=== PATIENT | female | born 2000 | race Caucasian/White ===

== ENCOUNTER 2024-05-23 08:05 | Outpatient (REF) | payer OTHER, SELFPAY ==
--- OUTSIDE RECORDS SUMMARY | 2024-05-23 08:14 | XMS_ITS | Encounter Summary ---
Author Organization Paula Bhatt [facility] Address [address] [place] [address] Care Team Providers Care Instructor Dramatic Arts Name Role Phone Felipa Humphries MD Primary Care Provider [phone] Hannah Byrd NP Unavailable Karine Miller NP Unavailable [phone] Tessy Cross MD Primary Care Provider + [phone] Encounter Details Date Type Department Care Team (Late st Contact Info) Description 10/28/2020 Lab Requisition [facility] [address] [place] [address] [phone] Tenzin Lo NP [address] [facility] [address] [place] [address] Encounter for general adult medical examination without abnormal findings; Dysmenorrhea, unspecified Social History Tobacco Use Types Packs/Day Years Used Date Smoking Tobacco: Never Smokeless Tobacco: Never Alcohol Use Standard Drinks/Week Comments Never 0 (1 standard drink = 0.6 oz pur e alcohol) Comments Unknown Sex and Gender Information Value Date Recorded Sex Assigned at Female 03/02/2020 8:22 AM EST Legal Sex Female 9:45 PM EDT Gender Identity Female 03/02/2020 8:22 AM EST Sexual Orientation Not on file documented as of this encounter Plan of Treatment Upcoming Encounters Date Type Department Care Team (Late st Contact Info) Description 06/30/2024 1:20 PM EDT Office Visit [facility] [address] [place] [address] Regina Hsu MD 480 [facility] [address] [place] [address] 04/17/2025 9:00 AM EST [facility] [address] [facility] [address] [place] [address] Tessy Cross MD [address] [facility] [address] [place] [address] documented as of this encounter Procedures Procedure Name Priority Date/Time Associated Diagnosis Comments AMPLIFIED PROBE, CHLAMYDIA AND GC Routine 10/28/2020 11:01 AM EDT Encounter for general adult medical examination without abnormal findings Dysmenorrhea, unspecified documented in this encounter Results * Chlamydia and GC AmplifiedProbe (10/28/2020 11:01 AM EDT) C. trachomatis by Amplified Probe Negative Negative PANTHER NON-FUSION 10/29/2020 12:47 PM EDT [facility] N. gonorrhoeae by Amplified Probe Negative Negative PANTHER NON-FUSION 10/29/2020 12:47 PM EDT [facility] xOther FIRST STREAM URINE SPECIMEN / Unknown 10/28/2020 11:01 AM EDT 10/28/2020 11:01 AM EDT Narrative [facility] - 10/29/2020 12:47 PM EDT This test was developed and its performance characteristics determined internally by our laboratory for female urine samples. It has not been cleared or approved by the U.S. Food and Drug Administration. FDA does not require this test to go through premarket FDA review. This test is used for clinical purposes. It should not be regarded as investigational or for research. This laboratory is certified under Clinical Laboratory Improvement Amendments (CLIA) as qualified to perform high complexity clinical laboratory testing Tenzin Lo NP MICROBIOLOGY - GENERAL ORDERABL ES Final Result [facility] [address] [place] [address] documented in this encounter Visit Diagnoses Diagnosis Encounter for general adult medical examination without abnormal findings Dysmenorrhea, unspecified documented in this encounter Care Teams Instructor Dramatic Arts Relationship Specialty Start Date End Date Felipa Humphries MD [address] [facility] [address] [place] [address] PCP - General 10/11/12 01/25/22 Tessy Cross MD [address] [facility] [address] [place] [address] PCP - General Family Practice 01/26/22 Hannah Byrd NP [address] [place] [address] [address] [place] [address] Nurse Practitioner Nurse Practitioner 06/03/21 Karine Miller NP [address] [place] [address] Nurse Practitioner Nurse Practitioner 06/04/21 documented as of this encounter
--- OUTSIDE RECORDS SUMMARY | 2024-05-23 08:14 | XMS_ITS | Encounter Summary ---
Author Organization Paula Bhatt [facility] Address [address] [place] [address] Care Team Providers Care Police Liaison Officer Name Role Phone Hannah Byrd CAR CUSTOMIZER Unavailable Karine Miller CAR CUSTOMIZER Unavailable [phone] Tessy Cross MD Primary Care Provider [phone] Reason for Referral * Consult / Treatment (Routine) - Pending Review Specialty Diagnoses / Procedures Referred By Contpreston t Referred To Contact Diagnoses ASCUS (atypical squamous cells of undetermined significance) on gynecologic Papanicolaou smear complicating , antepartum Tessy Cross MD [address] [place] [address] Phone: tel: fax: Referral ID Status Reason Start Date Expiration Date V isits Requested Visits Authorized [id number] Pending Review 04/26/2024 07/20/2025 1 1 Reason for Visit * Reason Onset Date Comments Results 04/26/2024 Encounter Details Date Type Department Care Team ([facility] Contact Info) Description 04/26/[address] [place] [address] Tessy Cross MD [address] [place] [address] [address] [place] [address] Results Social History Tobacco Use Types Packs/Day Years Used Date Smoking Tobacco: Never Smokeless Tobacco: Never Alcohol Use Standard Drinks/Week Comments Yes 1 (1 standard drink = 0.6 oz pur e alcohol) x1 per month [facility] Utilities Answer Date Recorded In the past 12 months has th e electric, gas, oil, or water company threatened to shut off services in your home? No 04/03/2024 Humiliation, Afraid, Rape, and Kick questionnair e Answer Date Recorded Within the last year, have y ou been afraid of your partner or ex-partner? No 04/03/2024 Emotionally Abused Not on file 04/03/2024 Physically Abused Not on file 04/03/2024 Sexually Abused Not on file 04/03/2024 Overall Financial Resource Strain (CARDIA) Answe r Date Recorded How hard is it for you to pa y for the very basics like food, housing, medical care, and heating? Not hard at all 04/03/2024 Hunger Vital Sign Answer Date Recorded Within the past 12 months, y ou worried that your food would run out before you got the money to buy more. Never true 04/03/19 25 Ran Out of Food in the Last Year Not on file 04/03/2024 PRAPARE - Transportation Answer Date Re corded In the past 12 months, has l ack of transportation kept you from medical appointments or from getting medications? No 03/22 In the past 12 months, has l ack of transportation kept you from meetings, work, or from getting things needed for daily living? No 04/03/2024 Housing Stability Vital Sign Answer Kulwant e Recorded In the last 12 months, was t here a time when you were not able to pay the mortgage or rent on time? No 04/08/2023 Number of Places Lived in the Last Year Not on f ile 04/08/2023 In the last 12 months, was t here a time when you did not have a steady place to sleep or slept in a usp (including now)? No 04/08/2023 Food Insecurity Answer Date Recorded Within the past 12 months, y ou worried that your food would run out before you got the money to buy more. Never true 04/03/19 25 Ran Out of Food in the Last Year Not on file 04/03/2024 Intimate Partner Violence Answer Date R ecorded Emotionally Abused Not on file 04/03/2024 Within the last year, have y ou been afraid of your partner or ex-partner? No 04/03/2024 Physically Abused Not on file 04/03/2024 Sexually Abused Not on file 04/03/2024 Housing Stability Answer Date Recorded In the last 12 months, was t here a time when you did not have a steady place to sleep or slept in a usp (including now)? No 04/03/2024 In the last 12 months, was t here a time when you were not able to pay the mortgage or rent on time? No 04/03/2024 [address] of Places Lived in the Last Year Not on f ile 04/03/2024 AUDIT C Answer Date Recorded How often have you had a dri nk containing alcohol, in the past year? 3 04/03/2024 How many standard drinks con taining alcohol have you had on a typical day when you are drinking, in the past year? 1 0 04/03/2024 How often have you had six o r more drinks on one occasion, in the past year? 2 04/03/2024 Comments No Sex and Gender Information Value Date Recorded Sex Assigned at Female 03/02/2020 8:22 AM EST Legal Sex Female 9:45 PM EDT Gender Identity Female 03/02/2020 8:22 AM EST Sexual Orientation Not on file Occupation Industry Job Start Date Job End Date student Not on file Not on file Not on file documented as of this encounter Miscellaneous Notes * Telephone Encounter - Tessy Cross MD - 04/26/2024 8:59 AM EST Spoke with patient. Will follow up with [facility]. * Telephone Encounter - Jane Amanda - 04/26/2024 8:51 AM EST Patient would like lab results documented in this encounter Plan of Treatment Upcoming Encounters Date Type Department Care Team (Late st Contact Info) Description 06/30/2024 1:20 PM EDT Office Visit [facility] [address] [place] [address] Regina Hsu MD 480 [facility] [address] [place] [address] 04/17/2025 9:00 AM EST Office Visit [facility] 480 [facility] [address] [place] [address] Tessy Cross MD 480 [facility] [address] [place] [address] Scheduled Referrals Name Type Priority Associated Diagnoses Orde r Schedule Ambulatory Referral to Obstetrics & Gynecology Outpatient Referral Routine ASCUS (atypical squamous cells of undetermined significance) on gynecologic Papanicolaou smear complicating , antepartum Expected: 04/26/2024 (Approximate), Expires: 04/26/2025 documented as of this encounter Visit Diagnoses Diagnosis ASCUS (atypical squamous cells of undetermined significance) on gynecologic Papanicolaou smear complicating , antepartum- Primary documented in this encounter Care Teams Police Liaison Officer Relationship Specialty Start Date End Date Tessy Cross MD 480 [facility] [address] [place] [address] PCP - General Family Practice 01/26/22 Hannah Byrd NP Nurse Practitioner Nurse Practitioner 06/03/21 Karine Miller NP [address] [place] [address] [address] [place] [address] Nurse Practitioner Nurse Practitioner 06/04/21 documented as of this encounter
--- OUTSIDE RECORDS SUMMARY | 2024-05-23 08:14 | XMS_ITS | Encounter Summary ---
Author Organization Paula Bhatt [facility] Address [address] [place] [address] Care Team Providers Care Machine Setup Operator Name Role Phone Felipa Humphries MD Primary Care Provider [phone] Hannah Byrd NP Unavailable Karine Miller [employer] Unavailable [phone] Tessy Cross MD Primary Care Provider + [phone] Encounter Details Date Type Department Care Team (Late st Contact Info) Description 04/15/2015 Lab Requisition [facility] [address] [place] [address] [phone] David Ramey, [facility] [address] [place] [address] Acute pharyngitis Social History Tobacco Use Types Packs/Day Years Used Date Smoking Tobacco: Never Assessed Comments Unknown Sex and Gender Information Value Date Recorded Sex Assigned at Female 03/02/2020 8:22 AM EST Legal Sex Female 9:45 PM EDT Gender Identity Female 03/02/2020 8:22 AM EST Sexual Orientation Not on file documented as of this encounter Plan of Treatment Upcoming Encounters Date Type Department Care Team (Late st Contact Info) Description 06/30/2024 1:20 PM EDT Office Visit [facility], [facility] [address] [place] [address] Regina Hsu MD [address] [address] 04/17/2025 9:00 AM EST Office Visit [facility] [address] [facility] [address] [place] [address] Tessy Cross MD 480 [facility] [address] [place] [address] documented as of this encounter Procedures Procedure Name Priority Date/Time Associated Diagnosis Comments BETA STREP SCREEN GROUP A Routine 04/15/2015 5:32 PM EST Acute pharyngitis documented in this encounter Results * Beta Strep Screen, Group A (04/15/2015 5:32 PM EST) Strep Group A Genprobe Negative Negative 04/16/2015 11:41 AM EST [facility] Specimen from throat (specimen) STRUCTURE OF ANTERIOR PORTION OF NECK / Unknown 04/15/2015 5:32 PM EST 04/15/2015 5:32 PM EST us David Ramey [employer] [facility] [facility] MICROBIOLOGY - GENERAL ORDERA BLES Final Result Performing Organization Address City/State/[facility] Co de Phone Number [facility] [address] [place] [address] documented in this encounter Visit Diagnoses Diagnosis Acute pharyngitis documented in this encounter Additional Health Concerns Infection Onset Date Last Indicated Resolved Time COVID Suspect 03/02/2020 03/02/2020 03/04/2020 7:0 1 PM EST documented as of this encounter Care Teams Machine Setup Operator Relationship Specialty Start Date End Date Felipa Humphries MD [address] [facility] [address] [place] [address] PCP - General 10/11/12 01/25/22 Tessy Cross MD [address] [place] [address] PCP - General Family Practice 01/26/22 Hannah Byrd NP [address] [place] [address] [address] [place] [address] Nurse Practitioner Nurse Practitioner 06/03/21 Karine Miller NP [address] [place] [address] Nurse Practitioner Nurse Practitioner 06/04/21 documented as of this encounter
--- OUTSIDE RECORDS SUMMARY | 2024-05-23 08:14 | XMS_ITS | Encounter Summary ---
Author Organization Paula Bhatt [facility] Address [address] [place] [address] Care Team Providers Care Wrist Closer Name Role Phone Felipa Humphries MD Primary Care Provider [phone] Hannah Byrd NP Unavailable Karine Miller NP Unavailable [phone] Tessy Cross MD Primary Care Provider + [phone] Encounter Details Date Type Department Care Team (Late st Contact Info) Description 11/20/2021 Lab Requisition [facility] [address] [place] [address] [phone] Art Odom Jr., [place] [address] Ashley Odom NP 480 [facility] [address] [place], [place] [id number] Dysmenorrhea, unspecified Social History Tobacco Use Types Packs/Day Years Used Date Smoking Tobacco: Never Smokeless Tobacco: Never Alcohol Use Standard Drinks/Week Comments Yes 1 (1 standard drink = 0.6 oz pur e alcohol) x1 per month Comments No Sex and Gender Information Value [...] Description 06/30/2024 1:20 PM EDT Office Visit [facility], [facility] [address] [place] [address] Regina Hsu MD [address] [place] [address] [address] [place] [address] 04/17/2025 9:00 AM EST Office Visit [facility] 480 [facility] [address] [place] [address] Tessy Cross MD 480 [facility] [address] [place] [address] documented as of this encounter Procedures Procedure Name Priority Date/Time Associated Diagnosis Comments AMPLIFIED PROBE, CHLAMYDIA AND GC Routine 11/20/2021 1:10 PM EDT Dysmenorrhea, unspecified documented in this encounter Results * Chlamydia and GC AmplifiedProbe (11/20/2021 1:10 PM EDT) C. trachomatis by Amplified Probe Negative Negative PANTHER NON-FUSION 11/26/2021 1:58 PM EDT [facility] N. gonorrhoeae by Amplified Probe Negative Negative PANTHER NON-FUSION 11/26/2021 1:58 PM EDT [facility] xOther FIRST STREAM URINE SPECIMEN / Unknown 11/20/2021 1:10 PM EDT 11/20/2021 1:10 PM EDT Narrative [facility] - 11/26/2021 1:58 PM EDT This test was developed and [...] to perform high complexity clinical laboratory testing us Ashley Odom NP MICROBIOLOGY - GENERAL ORDER CHARLEY Final Result [facility] [address] [place] [id number] documented in this encounter Visit Diagnoses Diagnosis Dysmenorrhea, unspecified documented in this encounter Care Teams Wrist Closer Relationship Specialty Start Date End Date Felipa Humphries MD 480 [facility] [address] [place] [address] PCP - General 10/11/12 01/25/22 Tessy Cross MD 480 [facility] [address] [place] [address] PCP - General Family Practice 01/26/22 Hannah Byrd NP 480 [facility] [address] [place] [address] Nurse Practitioner Nurse Practitioner 06/03/21 Karine Miller NP [address] [address] Nurse Practitioner Nurse Practitioner 06/04/21 documented as of this encounter
--- OUTSIDE RECORDS SUMMARY | 2024-05-23 08:14 | XMS_ITS | Clinical Summary ---
Author Organization Paula Bhatt [facility] Address [address] [place] [address] Care Team Providers Care [employer] Member Name Role Phone Hannah Byrd CONTACT CENTER ANALYST Unavailable Karine Miller CONTACT CENTER ANALYST Unavailable [phone] Tessy Cross MD Primary Care Provider [phone] Allergies No known active allergies Medications FLUoxetine (PROzac) 40 MG capsule Take 1 capsule (40 mg total) by mouth daily. 03/25/2024 Active SRONYX 0.1-20 mg-mcg per tablet Take 1 tablet by mouth daily. 84 tablet 3 04/06/2024 Active Active Problems No known active problems Encounters Date Type Department Care Team Description 04/26/[address] [address] Tessy Cross MD Results 04/06/2024 11:30 AM EST Lab [facility] [address] [place] [address] Health care maintenance; Screening for hyperlipidemia 04/06/2024 11:00 AM EST Office Visit [address] [address] Tessy Cross MD Health care maintenance (Primary Dx); Encounter for screening for other disorder; Encounter for gynecological examination (general) (routine) without abnormal findings; Screening for hyperlipidemia from Last 3 Months Immunizations Name Administration Dates Next Due COVID-19 Vaccine ([employer]) - (bivalent formulation 2021) 12/18/2021 COVID-19 Vaccine ([employer]) ? Original Formulation (prior to Mar 2021) 02/20/2021,07/31/2020,07/10/2020 COVID-19 Vaccine ? (MODERNA) 07/31/2020,07/10/2020 Influenza Vaccine - EGG FREE MDCK - SDV (FLUCELVAX) 11/29/2022 Influenza Vaccine - STANDARD - PF (FLUZONE/FLUARIX/FLULAVAL/AFLURIA) 01/12/2024 Influenza Vaccine - STANDARD - SDV (FLUZONE/FLUARIX/FLULAVAL/AFLURIA) 12/18/2021 Meningococcal B - Recombinant (BEXSERO) 02/13/20,10/28/2020 TD (TENIVAC/TDVAX) 10/28/2020 Family History Medical History Relation Comments Alcohol abuse Neg Hx Breast cancer Neg Hx Cancer Neg Hx Colon cancer Neg Hx Coronary artery disease Neg Hx Diabetes Neg Hx Endometrial cancer Neg Hx Hyperlipidemia Neg Hx Hypertension Neg Hx Ovarian cancer Neg Hx Stroke Neg Hx Substance Use Neg Hx Relation Status Comments Father Alive Mother Alive Sister Alive Social History Tobacco Use Types Packs/Day Years Used Date Smoking Tobacco: Never Smokeless Tobacco: Never Tobacco Cessation:Counseling Given: Not Answered Alcohol Use Standard Drinks/Week Comments Yes 1 (1 standard drink = 0.6 oz pur e alcohol) x1 per month [facility] Utilities Answer Date Recorded In the past 12 months has e [employer], gas, oil, or water On The Net Yet threatened to shut off services in your [...] place to sleep or slept in a intermediate (including now)? No 04/08/2023 Food Insecurity Answer [...] place to sleep or slept in a intermediate (including now)? No 04/03/2024 In the last [...] file Not on file Not on file Last Filed Vital Signs Vital Sign Reading Time Taken Comments Blood Pressure 128/80 04/06/2024 10:56 AM EST Pulse 80 04/06/2024 10:56 AM EST Temperature 36.2 ??C (97.2 ??F) 04/06/2024 10:[address] Respiratory Rate 16 04/06/2024 10:56 AM EST Oxygen Saturation 98% 04/06/2024 10:56 AM EST Inhaled Oxygen Concentration - - Weight 73 kg (161 lb) 04/06/2024 10:56 AM EST Height 165.1 cm (5' 5 ) 04/06/2024 10:56 AM EST Body Mass Index 26.79 04/06/2024 10:56 AM EST Plan of Treatment Upcoming Encounters Date Type Department Care Team (Late st Contact Info) Description 06/30/2024 1:20 PM EDT Office Visit [facility] [address] [place], [place] [id number] Regina Hsu MD [address] [place] [address] [address] [place] [address] 04/17/2025 9:00 AM EST [facility] [address] [facility] [address] [place] [address] Tessy Cross MD [address] [place] [address] [address] [place] [address] Health Maintenance Due Date Last Done Comments COVID-19 Vaccine ( season) 2023 12/18/2021, 02/20/2021, 07/31/2020, Additional history exists Depression Screening 04/03/2025 04/03/2024 Chlamydia and Gonorrhea Screening 04/06/2025 04/06/2024, 04/06/2024, 04/08/2023, Additional history exists Cervical Cancer Screening 04/06/2027 Pap Smear 04/06/2027 04/06/2024, 04/08/2023 Blood Pressure 04/06/2028 04/06/2024 DTaP,Tdap,and Td Vaccines (2 - Td or Tdap) 10/28/2030 10/28/2020 HPV/Cotest 12/09/2031 04/06/2024 Influenza Vaccine Completed 01/12/2024, , 12/18/2021 Hepatitis C Screening Completed 04/06/2024, 025 Meningococcal Vaccines Aged Out No lo nger eligible based on patient's age to complete this topic Pneumococcal Vaccine: Pediatrics (0 to 5 Years) and At-Risk Patients (6 to 64 Years) Aged Out No longer eligible based on patient's age to complete this topic Procedures Procedure Name Priority Date/Time Associated Diagnosis Comments AMPLIFIED PROBE, CHLAM AND GC, THIN PREP Routine 04/06/2024 4:16 PM EST Encounter for gynecological examination (general) (routine) without abnormal findings AMPLIFIED PROBE, CHLAMYDIA AND GC Routine 04/06/2024 4:16 PM EST Encounter for gynecological examination (general) (routine) without abnormal findings HEPATITIS C ANTIBODY Routine 04/06/2024 11:35 AM EST Health care maintenance LIQUID-BASED PAP, REFLEX HPV IF ASC-US Routine 04/06/2024 11:35 AM EST Encounter for gynecological examination (general) (routine) without abnormal findings HEPATITIS C STERILE HOLD Routine 04/06/2024 11:35 AM EST Health care maintenance HEPATITIS C ANTIBODY Routine 04/06/2024 11:35 AM EST Health care maintenance LIPID PANEL Routine 04/06/2024 11:35 AM EST Screening for hyperlipidemia COMPREHENSIVE METABOLIC PANEL Routine 04/06/2024 11:35 AM EST Health care maintenance CBC Routine 04/06/2024 11:35 AM EST Health care maintenance HIGH RISK HPV SCREEN (>30 YEARS) Routine 04/06/2024 11:35 AM EST Encounter for gynecological examination (general) (routine) without abnormal findings from Last 3 Months Results * Chlamydia and GC, Amplified Probe (04/06/2024 4:16 PM EST) N. gonorrhoeae by Amplified Probe Negative Negative, Indeterminate 04/08/2024 9:38 AM EST [facility] C. trachomatis by Amplified Probe Negative Negative 04/08/2024 9:38 AM EST [facility] Genital CERVIX UTERI STRUCTURE / Unknown 04/06/2024 4:16 PM EST 04/06/2024 4:16 PM EST us Tessy Cross MD MICROBIOLOGY - GENERAL ORD ERABLES Final Result Performing Organization Address [facility] Co de Phone Number [address] [address] * Chlamydia and GC Amplified Probe Urogenital (04/06/2024 4:16 PM EST) Genital CERVIX UTERI STRUCTURE / Unknown 04/06/2024 4:16 PM EST 04/06/2024 4:16 PM EST us Tessy Cross MD MICROBIOLOGY - GENERAL ORD ERABLES Final Result Performing Organization Address City/[facility] Co de Phone Number [address] [address] * Hepatitis C Antibody (04/06/2024 11:35 AM EST) Hepatitis C Antibody Negative Negative 04/06/2024 4:29 PM EST [facility] Blood Venipuncture / Unknown 04/06/2024 11:35 AM EST 04/06/2024 11:35 AM EST us Tessy Cross MD LAB BLOOD ORDERABLES Final Result Performing Organization Address [facility] Co de Phone Number [address] [address] * Hepatitis C Sterile Hold (04/06/2024 11:35 AM EST) Blood Venipuncture / Unknown 04/06/2024 11:35 AM EST 04/06/2024 11:35 AM EST Tessy Cross MD LAB BLOOD ORDERABLES Final Result Performing Organization Address [facility] de Phone Number [facility] [address] [place] [address] * (ABNORMAL) High Risk HPV Screen (04/06/2024 11:35 AM EST) HPV mRNA E6 / E7 Positive(A) Negative 04/26/2024 8:11 AM EST [facility] Comment: This HPV screen detects 12 high risk HPV types 31, 33, 35, 39, 45, 51, 52, 56, 58, 59, 66, and 68. HPV type 16 and type 18 are reported separately. The norris HPV test detects 14 high risk HPV (HPV-HR) types in all. A negative result does not preclude the presence of HPV infection because results depend on adequate specimen collection, absence of inhibitors, and sufficient DNA to be detected. HPV 16 Negative Negative 04/26/2024 8:11 AM EST [facility] HPV 18 Negative Negative 04/26/2024 8:11 AM [facility] Genital CERVIX UTERI STRUCTURE / Unknown 04/06/2024 11:35 AM EST 04/20/2024 4:25 PM EST Tessy Cross MD MICROBIOLOGY - GENERAL ORD ERABLES Final Result Performing Organization Address City/[facility]/ZIP Co de Phone Number [address] [address] * CBC (04/06/2024 11:35 AM EST) WBC 6.94 4.00 - 11.00 K/uL 04/06/2024 3:30 PM [facility] RBC 4.84 4.00 - 5.20 M/uL 04/06/2024 3:30 PM [facility] Hemoglobin 14.4 12.0 - 15.0 g/dL 04/06/2024 3:30 PM [facility] Hematocrit 44.2 36.0 - 45.0 % 04/06/2024 3:30 PM [facility] MCH 29.8 23.0 - 37.0 pg 04/06/2024 3:30 PM [facility] MCHC 32.6 29.0 - 38.0 g/dL 04/06/2024 3:30 PM [facility] MCV 91 82 - 98 fL 04/06/2024 3:30 PM [facility] RDW 11.9 11.5 - 14.5 % 04/06/2024 3:30 PM [facility] Platelet Count 261 150 - 450 K/uL 04/06/2024 3:30 PM [facility] MPV 10.5 6.0 - 14.0 fL 04/06/2024 3:30 PM [facility] Blood Venipuncture / Unknown 04/06/2024 11:35 AM EST 04/06/2024 11:35 AM EST us Tessy Cross MD LAB BLOOD ORDERABLES Final Result [facility] [address] [place] [address] * (ABNORMAL) Lipid Panel (04/06/2024 11:35 AM EST) Cholesterol 181 125 - 200 mg/dL 04/06/2024 4:04 PM [facility] Triglycerides 84 55 - 150 mg/dL 04/06/2024 4:04 PM [facility] HDL Cholesterol 85(H) 40 - 65 mg/dL 04/06/2024 4:04 PM [facility] LDL Cholesterol 79 <130 mg/dL 4:04 PM [facility] Non-HDL Cholesterol 96 <190 mg/dL 04/06/2024 4:04 PM [facility] Comment: Normal primary prevention ?<190 mg/dL High risk primary prevention ?? <160 mg/dL Secondary prevention ? <130 mg/dL High risk secondary prevention <100 mg/dL VLDL Cholesterol 17 8 - 71 mg/dL 04/06/2024 4:04 PM [facility] Ratio Chol/HDL 2.1 2.0 - 5.0 04/06/2024 4:04 PM [facility] Patient Fasting Yes 4:04 PM [facility] Blood Venipuncture / Unknown 04/06/2024 11:35 AM EST 04/06/2024 11:35 AM EST Tessy Cross MD LAB BLOOD ORDERABLES Final Result [facility] [address] [place] [address] * Comprehensive Metabolic Panel (04/06/2024 11:35 AM EST) Sodium 138 135 - 146 mmol/L 04/06/2024 4:04 PM [facility] Potassium 4.2 3.4 - 5.2 mmol/L 04/06/2024 4:04 PM [facility] Comment:Samples tested in [facility] may exhibit a higher potassium value than those tested on plasma. Our current range is based on plasma testing. Chloride 102 98 - 110 mmol/L 04/06/2024 4:04 PM [facility] Total CO2/Bicarbonate 25 24 - 32 mmol/L 04/06/2024 4:04 PM [facility] Anion Gap 11 2 - 15 mmol/L 04/06/2024 4:04 PM [facility] BUN 10 7 - 24 mg/dL 04/06/2024 4:04 PM [facility] Creatinine, Blood 0.80 0.50 - 1.10 mg/dL 04/06/2024 4:04 PM [facility] Glucose, Blood 79 50 - 100 mg/dL 04/06/2024 4:04 PM [facility] Calcium 9.5 8.5 - 10.5 mg/dL 04/06/2024 4:04 PM [facility] Total Protein 7.4 6.2 - 8.2 g/dL 04/06/2024 4:04 PM [facility] Albumin, Blood 4.4 3.4 - 5.2 g/dL 04/06/2024 4:04 PM EST [facility] Globulin Result 3.0 2.0 - 4.0 g/dL 04/06/2024 4:04 PM EST [facility] AST (SGOT) 19 11 - 40 U/L 04/06/2024 4:04 PM EST [facility] ALT (SGPT) 24 5 - 35 U/L 04/06/2024 4:04 PM [facility] Alkaline Phosphatase 62 30 - 115 U/L 04/06/2024 4:04 PM [facility] Total Bilirubin 0.7 0.2 - 1.2 mg/dL 04/06/2024 4:04 PM [facility] Estimated GFR(CKD-EPI) 105 >=60 mL/min/BSA 04/06/2024 4:04 PM [facility] Blood Venipuncture / Unknown 04/06/2024 11:35 AM EST 04/06/2024 11:35 AM EST us Tessy Cross MD LAB BLOOD ORDERABLES Final Result Performing Organization Address City/State/[facility] Co de Phone Number [facility] [address] [place] [address] * LB PAP, reflex HPV if ASC-US (04/06/2024 11:35 AM EST) Case Report Gynecologic Cytology Report ? Case: [id number] ? Authorizing Provider: ??Tessy Cross MD ? Collected: ? 04/06/2024 11:35 AM ? Ordering Location: ? [facility] [address] [place] ?Received: ?04/06/2024 11:35 AM ? First Screen: ?Zuleika Jansen, CT ? Pathologist: ? Surya Orozco MD ? Specimen: ?LIQUID-BASED PAP, SCREENING, Cervix ? 04/20/2024 4:25 PM EST [facility] Adequacy SATISFACTORY FOR EVALUATION, ENDOCERVICAL/TRA NSFORMATION ZONE COMPONENT PRESENT 04/20/2024 4:25 PM EST [facility] Interpretation ATYPICAL SQUAMOUS CELLS OF UNDETERMINED SIGNIFICANCE (ASCUS) 04/20/2024 4:25 PM [facility] Final Diagnosis Atypical squamous cells of undetermined significance (ASCUS). 04/20/2024 4:25 PM [facility] Clinical Information Encounter for gynecological examination (general) (routine) without abnormal findings 04/20/2024 4:25 PM [facility] Cyto Gross Description Received 1 ThinPrep preservative fluid collection vial labeled with the patient's name and medical record number or date of . 04/20/2024 4:25 PM [facility] Methods and Disclaimers This specimen was successfully pre-screened using the [employer] Automated ThinPrep Imaging System. Following automated imaging, selected malcolm from the slide were reviewed by a instructional material director , and if indicated, by a pathologist. Cervicovaginal Cytology ( Pap Smear ) is a screening test with inherent, but low, probability of error, and is intended to aid in the detection of cervical squamous cell carcinoma and its precursors. Although very effective, the false negative rate for the ThinPrep method has been reported in the literature to be approximately 2%. ThinPrep Pap test processing performed at [facility]; [address] [place] [address]; [place] [address]. Pathologist interpretation performed at [facility]; [address] [place] [address]; [place] [address]. Network Technician screening performed by: [facility] [address] [address] CLIA # [id number] CAP# [id number] 04/20/2024 4:25 PM EST [facility] Genital CERVIX UTERI STRUCTURE / Unknown 04/06/2024 11:35 AM EST 04/06/2024 11:35 AM EST us Tessy Cross MD PATHOLOGY/CYTOLOGY ORDERAB [place] [address] [facility] [address] [place] [phone], from Last 3 Months Insurance [employer] Care Teams [employer] Member Relationship Specialty Start Date End Date Tessy Cross MD [address] [place] [address] PCP - General Family Practice 01/26/22 Hannah Byrd NP Nurse Practitioner Nurse Practitioner 06/03/21 Karine Miller NP [address] [place] [id number] Nurse Practitioner Nurse Practitioner 06/04/21
--- OUTSIDE RECORDS SUMMARY | 2024-05-23 08:14 | XMS_ITS | Encounter Summary ---
Author Organization Paula Bhatt [facility] Address [address] [place] [address] Care Team Providers Care Supervisor [employer] Name Role Phone Felipa Humphries MD Primary Care Provider [phone] Hannah Byrd NP Unavailable Karine Miller CHILD ATTENDANT Unavailable [phone] Tessy Cross MD Primary Care Provider + [phone] Encounter Details Date Type Department Care Team (Late st Contact Info) Description 02/27/2019 Lab Requisition [facility] [address] [place] [phone] David Ramey, CHILD ATTENDANT [address] [place] [address] Dysmenorrhea, unspecified Social History Tobacco Use Types [...] Description 06/30/2024 1:20 PM EDT Office Visit [facility], [address] [address] Regina Hsu MD [address] [place] [address] 04/17/2025 9:00 AM EST [facility] [address] [facility] [address] [place] [address] Tessy Cross MD [address] [facility] [address] [place] [address] documented as of this encounter Procedures Procedure Name Priority Date/Time Associated Diagnosis Comments AMPLIFIED PROBE, CHLAMYDIA AND GC Routine 02/27/2019 5:31 PM EST Dysmenorrhea, unspecified documented in this encounter Results * Chlamydia and GC AmplifiedProbe (02/27/2019 5:31 PM EST) C. trachomatis by Amplified Probe Negative Negative 02/27/2019 10:23 PM EST [facility] N. gonorrhoeae by Amplified Probe Negative Negative 02/27/2019 10:23 PM EST [facility] Specimen of unknown material (specimen) FIRST STREAM URINE SPECIMEN / Unknown 02/27/2019 5:31 PM EST 02/27/2019 5:31 PM EST Narrative [facility] - 02/27/2019 10:23 PM EST This test was developed and its performance [...] perform high complexity clinical laboratory testing us David Ramey NP MICROBIOLOGY - GENERAL ORDERA BLES Final Result [facility] [address] [place] [address] documented in this encounter Visit Diagnoses Diagnosis Dysmenorrhea, unspecified documented in this encounter Additional Health Concerns Infection Onset Date Last Indicated Resolved Time COVID Suspect 03/02/2020 03/02/2020 03/04/2020 7:0 1 PM EST documented as of this encounter Care Teams Supervisor [employer] Relationship Specialty Start Date End Date Felipa Humphries MD [address] [facility] [address] [place] [address] PCP - General 10/11/12 01/25/22 Tessy Cross MD [address] [facility] [address] [place] [address] PCP - General Family Practice 01/26/22 Hannah Byrd NP [address] [facility] [address] [place] [address] Nurse Practitioner Nurse Practitioner 06/03/21 Karine Miller NP [address] [place] [id number] Nurse Practitioner Nurse Practitioner 06/04/21 documented as of this encounter
== END 2024-05-23 08:06 | disposition home or self-care (01) ==
LOC: HO.UMASIMG 08:05
PROVIDERS: Visit Provider Family Medicine
DX: Z13.89 Encounter for screening for other disorder (principal)